=== PATIENT | male | born 1960 | race Caucasian/White ===

== ENCOUNTER 2017-06-29 05:02 | Inpatient (IN) | payer BC, OTHER ==
[2017-06-26 11:26] VITALS: BMI 25.9
[2017-06-29] MEDS ORDERED: MIDAZOLAM HCL 2 MG/2 ML SINGLE DOSE VIAL ONE ×2 (07:35)
[2017-06-29] MEDS ORDERED: DEXAMETHASONE SOD PHOSPHATE/PF 10 MG/ML SDV ONE (07:36)
[2017-06-29] MEDS ORDERED: BUPIVACAINE HCL/PF 0.5% (5MG/ML) 10 ML VIAL ONE ×2 (07:37→07:43)
--- NOTE | 2017-06-29 07:51 | HP ---
History & Physical Update - History History: No Change - Physical Physical: No Change - Assessment Assessment: No Change - Plan Plan: No Change (Initial H&P is complete and in his paper chart. Here today for elective robotic subtotal gastrectomy (egd bx identified adenocarcinoma). No new complaints or medications.)
[2017-06-29] MEDS ORDERED: ceFAZolin SODIUM 1 GM VIAL IVPB ONE (08:45)
[2017-06-29] MEDS ORDERED: INDOCYANINE GREEN 25 MG/10 ML VIAL IVPUSH ONE (12:41)
--- NOTE | 2017-06-29 13:34 | OP ---
Operative Note - Note: Operative Date: 06/29/17 Pre-Operative Diagnosis: Gastric Carcinoma Operation: robotic subtotal gastrectomy Post-Operative Diagnosis: Same as Pre-op Surgeon: Michael Martinez Guide Foreign Tour: Kervin Altamirano Anesthesia: General Specimens Removed: stomach and celiac nodes Estimated Blood Loss (mls): 100 Drains & Tubes with Location: SUE
[2017-06-29] MEDS ORDERED: HYDROmorphone HCL CARPU-JECT 2 MG/1 ML DISP.SYRIN IVPB PRN (13:37)
[2017-06-29] MEDS ORDERED: ACETAMINOPHEN 1000 MG/100 ML VIAL (NON FORMULARY) IVPB ONE ×2 (13:38→14:01)
[2017-06-29] MEDS ORDERED: ONDANSETRON 4 MG/2 ML VIAL IVPUSH PRN (13:41)
[2017-06-29] MEDS ORDERED: oxyCODONE HCL 5 MG TABLET PO PRN (13:41)
[2017-06-29] MEDS ORDERED: LACTATED RINGERS SOLUTION 1,000 ML IV SCH (13:45)
--- NOTE | 2017-06-29 13:48 | SURG ---
Surgery Director Housekeeping Note Director Housekeeping: Kervin Altamirano PA-C Date of Service: 06/29/17 Diagnosis: Gastric carcinoma Procedure: robotic subtotal gastrectomy I was present for the entirety of the operative procedure. For further detail, please refer to operative report. Visit type - Case Type Case Type: Scheduled Admission - New patient This patient is new to me today: Yes Date on this admission: 06/29/17
[2017-06-29] MEDS: LACTATED RINGERS SOLUTION 1,000 ML IV SCH ×2 (15:00→22:02)
[2017-06-29 15:01] LABS: HEMATOCRIT 44.5 % (35.4-49); MCH 30.2 pg (25.7-33.7); MCHC 33.6 g/dl (32.0-35.9); MEAN CELL VOLUME 89.7 fl (80-96); MEAN PLT VOLUME 8.8 fl (7.5-11.1); PLATELET COUNT 242 K/MM3 (134-434); RBC 4.95 M/mm3 (4.00-5.60); WHITE BLOOD COUNT 11.8 K/mm3 (4.0-10.0)
[2017-06-29 15:34] LABS: ANION GAP 6 (8-16); BLOOD UREA NITROGEN 19 mg/dL (7-18); CALCIUM 8.4 mg/dL (8.5-10.1); CHLORIDE 104 mmol/L (98-107); CO2 26 mmol/L (21-32); CREATININE 1.2 mg/dL (0.7-1.3); GLUCOSE,RANDOM 151 mg/dL (74-106); POTASSIUM 4.4 mmol/L (3.5-5.1); SODIUM 136 mmol/L (136-145)
[2017-06-29] MEDS ORDERED: PANTOPRAZOLE SODIUM 40 MG VIAL IVPB ONE (19:45)
[2017-06-29] MEDS: morphine SULFATE 4 MG/ML VIAL IVPUSH PRN ×2 (20:07→23:35)
[2017-06-29] MEDS: CEFAZOLIN 1 GM/D5W 1 GM/50 ML BAG IVPB SCH (20:16)
[2017-06-29] MEDS ORDERED: DEXAMETHASONE SOD PHOSPHATE 10 MG/1 ML VIAL ONE (20:45)
[2017-06-29 21:38] LABS: HEMATOCRIT 40.2 % (35.4-49); HEMOGLOBIN 13.8 GM/dL (11.7-16.9); MCH 30.6 pg (25.7-33.7); MCHC 34.3 g/dl (32.0-35.9); MEAN CELL VOLUME 89.3 fl (80-96); MEAN PLT VOLUME 9.2 fl (7.5-11.1); PLATELET COUNT 249 K/MM3 (134-434); RDW 13.9 % (11.9-15.9); WHITE BLOOD COUNT 9.2 K/mm3 (4.0-10.0)
[2017-06-29] MEDS ORDERED: DEXAMETHASONE SOD PHOSPHATE 10 MG/1 ML VIAL IVPUSH ONE (21:45)
[2017-06-29 22:25] LABS: ALBUMIN 2.9 g/dl (3.4-5.0); ALK PHOS 103 U/L (45-117); ANION GAP 10 (8-16); BILIRUBIN,TOTAL 0.4 mg/dL (0.2-1.0); BLOOD UREA NITROGEN 21 mg/dL (7-18); CALCIUM 7.9 mg/dL (8.5-10.1); CHLORIDE 103 mmol/L (98-107); CO2 24 mmol/L (21-32); GLUCOSE,RANDOM 155 mg/dL (74-106); POTASSIUM 4.5 mmol/L (3.5-5.1); SGOT/AST 52 U/L (15-37); SGPT/ALT 78 U/L (12-78); SODIUM 137 mmol/L (136-145); TOT PROT 6.1 g/dl (6.4-8.2)
[2017-06-29] MEDS: ONDANSETRON 4 MG/2 ML VIAL IVPUSH PRN (22:46)
[2017-06-30] MEDS: CEFAZOLIN 1 GM/D5W 1 GM/50 ML BAG IVPB SCH (01:06)
[2017-06-30] MEDS: morphine SULFATE 4 MG/ML VIAL IVPUSH PRN ×2 (03:09→13:19)
[2017-06-30] MEDS: ONDANSETRON 4 MG/2 ML VIAL IVPUSH PRN (06:02)
[2017-06-30] MEDS: LACTATED RINGERS SOLUTION 1,000 ML IV SCH ×2 (07:00→15:29)
[2017-06-30] MEDS ORDERED: ENOXAPARIN NA (PORCINE) 40 MG/0.4 ML DISP.SYRIN SQ SCH (10:00)
[2017-06-30] MEDS ORDERED: PANTOPRAZOLE SODIUM 40 MG VIAL IVPUSH SCH (10:00)
[2017-06-30 10:30] LABS: ALBUMIN 2.8 g/dl (3.4-5.0); ANION GAP 3 (8-16); BILIRUBIN,TOTAL 0.4 mg/dL (0.2-1.0); BLOOD UREA NITROGEN 31 mg/dL (7-18); CALCIUM 7.8 mg/dL (8.5-10.1); CHLORIDE 104 mmol/L (98-107); CO2 28 mmol/L (21-32); CREATININE 1.1 mg/dL (0.7-1.3); GLUCOSE,RANDOM 163 mg/dL (74-106); POTASSIUM 4.6 mmol/L (3.5-5.1); SGOT/AST 51 U/L (15-37); SGPT/ALT 84 U/L (12-78); SODIUM 135 mmol/L (136-145); TOT PROT 5.7 g/dl (6.4-8.2)
[2017-06-30] MEDS ORDERED: DEXAMETHASONE SOD PHOSPHATE 4 MG/1 ML VIAL IVPUSH ONE (10:30)
[2017-06-30 10:31] LABS: ALK PHOS 89 U/L (45-117)
[2017-06-30 10:33] LABS: HEMATOCRIT 36.7 % (35.4-49); HEMOGLOBIN 12.2 GM/dL (11.7-16.9); MCHC 33.3 g/dl (32.0-35.9); MEAN CELL VOLUME 90.3 fl (80-96); PLATELET COUNT 309 K/MM3 (134-434); RBC 4.06 M/mm3 (4.00-5.60); RDW 14.2 % (11.9-15.9); WHITE BLOOD COUNT 15.7 K/mm3 (4.0-10.0)
--- NOTE | 2017-06-30 13:06 | PN ---
Progress Note, Physician History of Present Illness: s/p subtotal gastrectromy several episodes of hematemesis in small amounts - Current Medication List Current Medications: Active Medications Fentanyl (Sublimaze Injection -) 50 mcg IVPUSH [id number] PRN PRN Reason: PAIN-PACU ORDER X 4 DOSES ONLY Lactated Ringer's (Lactated Ringers Solution) 1,000 mls @ 125 mls/hr IV ASDIR COUNTS INCLUDE 234 BEDS AT THE [facility] Last Admin: 06/30/17 07:00 Dose: 125 mls/hr Morphine Sulfate (Morphine Sulfate) 4 mg IVPUSH Q3H PRN PRN Reason: PAIN LEVEL 7 - 10 Stop: 06/30/17 19:45 Last Admin: 06/30/17 03:09 Dose: 4 mg Oxycodone HCl (Roxicodone -) 5 mg PO Q4H PRN PRN Reason: PAIN LEVEL 1 - 3 Pantoprazole Sodium (Protonix Iv) 40 mg IVPUSH DAILY COUNTS INCLUDE 234 BEDS AT THE [facility] Last Admin: 06/30/17 10:28 Dose: 40 mg - Objective Vital Signs: Vital Signs Temperature 98.9 F 06/30/17 07:34 Pulse Rate 104 H 06/30/17 07:34 Respiratory Rate 20 06/30/17 07:34 Blood Pressure 138/85 06/30/17 07:34 O2 Sat by Pulse Oximetry (%) 98 06/29/17 21:00 Labs: CBC, BMP 06/30/17 09:53 06/30/17 09:53 Problem List - Problems (1) Gastric adenocarcinoma Code(s): C16.9 - MALIGNANT NEOPLASM OF STOMACH, UNSPECIFIED Assessment/Plan NPo serial H/H cxr continue with close observation PPIs
[2017-06-30 17:44] LABS: HEMATOCRIT 32.6 % (35.4-49); MCH 30.2 pg (25.7-33.7); MCHC 33.7 g/dl (32.0-35.9); MEAN CELL VOLUME 89.5 fl (80-96); MEAN PLT VOLUME 8.6 fl (7.5-11.1); PLATELET COUNT 272 K/MM3 (134-434); RBC 3.64 M/mm3 (4.00-5.60); RDW 14.3 % (11.9-15.9)
--- NOTE | 2017-06-30 18:15 | PN ---
Progress Note (short form) - Note Progress Note: feeling better minimal output from NGT mostly clear Exam soft nondistended Hct stable no need for transfusion continue to observe NPO IV fluids serial CBC Problem List - Problems (1) Gastric adenocarcinoma Code(s): C16.9 - MALIGNANT NEOPLASM OF STOMACH, UNSPECIFIED
--- NOTE | 2017-06-30 18:48 | PN ---
Progress Note, Physician History of Present Illness: Underwent laparoscopic partial gastrectomy yesterday without any complications. Denies any abdominal pain. NG tube passed this AM and draining fresh blood. 5PM HB 11Gm, admission HB 15. - Current Medication List Current Medications: Active Medications Fentanyl (Sublimaze Injection -) 50 mcg IVPUSH [id number] PRN PRN Reason: PAIN-PACU ORDER X 4 DOSES ONLY Lactated Ringer's (Lactated Ringers Solution) 1,000 mls @ 125 mls/hr IV ASDIR [facility] Last Admin: 06/30/17 15:29 Dose: Not Given Morphine Sulfate (Morphine Sulfate) 4 mg IVPUSH Q3H PRN PRN Reason: PAIN LEVEL 7 - 10 Stop: 06/30/17 19:45 Last Admin: 06/30/17 13:19 Dose: 4 mg Oxycodone HCl (Roxicodone -) 5 mg PO Q4H PRN PRN Reason: PAIN LEVEL 1 - 3 Pantoprazole Sodium (Protonix Iv) 40 mg IVPUSH DAILY [facility] Last Admin: 06/30/17 10:28 Dose: 40 mg - Objective Vital Signs: Vital Signs Temperature 99.1 F 06/30/17 17:04 Pulse Rate 103 H 06/30/17 17:04 Respiratory Rate 20 06/30/17 17:04 Blood Pressure 152/70 06/30/17 17:04 O2 Sat by Pulse Oximetry (%) 98 06/29/17 21:00 Constitutional: Yes: Well Nourished, No Distress Eyes: Yes: WNL HENT: Yes: WNL Neck: Yes: WNL Cardiovascular: Yes: Regular Rate and Rhythm, S1, S2 Respiratory: Yes: Regular, CTA Bilaterally Gastrointestinal: Yes: Other (surgical wound dressing is clean. Abdomen is not distended, slight tenderness in epigastrium. Peristalsis sluggish) Genitourinary: Yes: WNL Musculoskeletal: Yes: WNL Extremities: Yes: WNL Edema: No Peripheral Pulses WNL: Yes Integumentary: Yes: WNL Wound/Incision: Yes: Clean/Dry Neurological: Yes: Alert, Oriented ...Motor Strength: WNL Psychiatric: Yes: Alert, Oriented Labs: CBC, BMP 06/30/17 17:00 06/30/17 09:53
[2017-06-30] MEDS ORDERED: LACTATED RINGERS SOLUTION 1,000 ML IV SCH ×2 (19:28→23:30)
[2017-06-30] MEDS ORDERED: METOCLOPRAMIDE HCL INJECTION 10 MG/2 ML VIAL IVPB SCH (19:30)
--- NOTE | 2017-06-30 19:35 | CON.GI ---
Consult Consult Specialty:: GI Referred by:: Dr Zhu Reason for Consultation:: Upper GI bleeding - History of Present Illness History of Present Illness: The patieint was s/p partial gastrectomy secondary to adenocarcinoma yesterday. Over night he had several eiposide of hematemesis. Ngt was inserted this morning. His estimated blood loss was 2 units of blood. On review of his vital signs he has resting tachycardia of 103. - Alcohol/Substance Use Hx Alcohol Use: Yes (rarely) - Smoking History Smoking history: Current some day smoker Have you smoked in the past 12 months: Yes Aproximately how many cigarettes per day: 20 Home Medications - Allergies Allergies/Adverse Reactions: Allergies Allergy/AdvReac Type Severity Reaction Status Date / Time No Known Allergies Allergy Verified 06/29/17 06:49 - Home Medications Home Medications: Ambulatory Orders Sulfasalazine [Azulfidine] 500 mg PO DAILY 06/26/17 Physical Exam-GI Vital Signs: Vital Signs Temperature 99.1 F 06/30/17 17:04 Pulse Rate 103 H 06/30/17 17:04 Respiratory Rate 20 06/30/17 17:04 Blood Pressure 152/70 06/30/17 17:04 O2 Sat by Pulse Oximetry (%) 98 06/29/17 21:00 Constitutional: Yes: Well Nourished Eyes: Yes: Conjunctiva Clear HENT: Yes: Normocephalic Neck: Yes: Trachea Midline Cardiovascular: Yes: Regular Rate and Rhythm Respiratory: Yes: CTA Bilaterally ...Palpate: Yes: Soft. No: Firm/Rigid, Guarding, Hepatomegaly, Mass, Pulsatile Mass, Splenomegaly, Tenderness Labs: CBC, BMP 06/30/17 17:00 06/30/17 09:53 Problem List - Problems (1) Upper GI bleeding Assessment/Plan: r/o M-W tear post op bleedingassociated with Tachycardia R> will need 1 unit of PRBC because of acute blood loss and orthostatic changes , FFP 2 units ,h/o lovenox use low Gomco suction IV Reglan and Zofran t Code(s): K92.2 - GASTROINTESTINAL HEMORRHAGE, UNSPECIFIED (2) Leukocytosis Assessment/Plan: post op r/o occult Aspiration R> will cover empirically with Ceftriaxone Code(s): D72.829 - ELEVATED WHITE BLOOD CELL COUNT, UNSPECIFIED
[2017-06-30] MEDS: ONDANSETRON 4 MG/2 ML VIAL IVPB SCH ×2 (19:55→21:59)
[2017-06-30] MEDS ORDERED: CEFTRIAXONE 1,000 MG in DEXTROSE 5%-WATER - 50 ML IVPB ONE (20:15)
[2017-06-30] MEDS: PANTOPRAZOLE SODIUM 40 MG VIAL IVPUSH SCH (21:59)
[2017-06-30] MEDS ORDERED: morphine SULFATE 4 MG/ML VIAL IVPUSH PRN (23:19)
[2017-06-30] MEDS ORDERED: METOPROLOL TARTRATE 5 MG/5 ML VIAL IVPUSH ONE (23:30)
[2017-07-01] MEDS: ONDANSETRON 4 MG/2 ML VIAL IVPB SCH ×6 (02:57→21:33)
[2017-07-01 06:03] LABS: HEMATOCRIT 29.1 % (35.4-49); HEMOGLOBIN 9.9 GM/dL (11.7-16.9); MCH 30.5 pg (25.7-33.7); MEAN CELL VOLUME 89.6 fl (80-96); MEAN PLT VOLUME 8.5 fl (7.5-11.1); PLATELET COUNT 229 K/MM3 (134-434); RBC 3.24 M/mm3 (4.00-5.60); RDW 13.6 % (11.9-15.9); WHITE BLOOD COUNT 11.8 K/mm3 (4.0-10.0)
[2017-07-01] MEDS: METOCLOPRAMIDE HCL INJECTION 10 MG/2 ML VIAL IVPB SCH ×3 (06:49→21:27)
[2017-07-01] MEDS ORDERED: PT OWN MED DRAWER 7, Y5N ONE (09:23)
[2017-07-01] MEDS: PANTOPRAZOLE SODIUM 40 MG VIAL IVPUSH SCH ×2 (10:50→21:27)
--- NOTE | 2017-07-01 10:58 | CONSULT ---
Consult Consult Specialty:: PULMONARY/CCM Referred by:: Dr. Garcia Reason for Consultation:: GI bleed - History of Present Illness Chief Complaint: gastric ca History of Present Illness: 57yo male with recently diagnosed gastric adenocarcinoma who underwent an elective robotic subtotal gastrectomy/celiac node biopsy on 06/29 who started to bleed bright red blood from his NGT yesterday. H/H down to 9.9 this AM from 15 preop. Currently receiving PRBC transfusions. No shortness of breath or chest pain. Mild incisional pain. No lightheadedness or dizziness. - History Source History Provided By: Patient, Medical Record Limitations to Obtaining History: No Limitations - Alcohol/Substance Use Hx Alcohol Use: Yes (rarely) - Smoking History Smoking history: Current some day smoker Have you smoked in the past 12 months: Yes Aproximately how many cigarettes per day: 20 Home Medications - Allergies Allergies/Adverse Reactions: Allergies Allergy/AdvReac Type Severity Reaction Status Date / Time No Known Allergies Allergy Verified 06/29/17 06:49 - Home Medications Home Medications: Ambulatory Orders Sulfasalazine [Azulfidine] 500 mg PO DAILY 06/26/17 Review of Systems - Review of Systems Constitutional: denies: Chills, Fever Eyes: denies: Recent Change in Vision HENT: denies: Nasal Congestion, Throat Pain Neck: denies: Stiffness, Tenderness Cardiovascular: denies: Chest Pain, Edema, Palpitations, Shortness of Breath Respiratory: denies: Cough, Wheezing Gastrointestinal: reports: Abdominal Pain. denies: Nausea, Vomiting Genitourinary: denies: Dysuria, Hematuria Neurological: denies: Dizziness, Headache Physical Exam Vital Signs: Vital Signs Temperature 99.5 F 07/01/17 08:00 Pulse Rate 100 H 07/01/17 08:00 Respiratory Rate 20 07/01/17 08:03 Blood Pressure 135/77 07/01/17 08:00 O2 Sat by Pulse Oximetry (%) 97 07/01/17 08:03 Constitutional: Yes: Calm Eyes: Yes: Conjunctiva Clear, EOM Intact HENT: Yes: Atraumatic, Normocephalic Neck: Yes: Supple, Trachea Midline Cardiovascular: Yes: Regular Rate and Rhythm Respiratory: Yes: Regular, CTA Bilaterally Gastrointestinal: Yes: Normal Bowel Sounds, Soft, Other (dressings clean) Edema: No Neurological: Yes: Alert, Oriented Labs: CBC, BMP 07/01/17 05:30 06/30/17 09:53 Imaging - Results Chest X-ray: Report Reviewed (no infiltrates), Image Reviewed Problem List - Problems (1) Gastric adenocarcinoma Code(s): C16.9 - MALIGNANT NEOPLASM OF STOMACH, UNSPECIFIED (3) Upper GI bleeding Code(s): K92.2 - GASTROINTESTINAL HEMORRHAGE, UNSPECIFIED (4) Acute blood loss anemia Code(s): D62 - ACUTE POSTHEMORRHAGIC ANEMIA Assessment/Plan Gastric Ca s/p robotic subtotal gastrectomy/celiac node sampling Acute blood Loss Anemia - monitor H/H, coags - transfuse as needed - NPO - IVF - protonix - mechanical DVT prophylaxis - ensure large bore peripheral access - continue ICU monitoring Thank you for this consult Salazar Lyons MD
[2017-07-01 15:23] LABS: BASO % 0.1 % (0-2.0); HEMATOCRIT 35.4 % (35.4-49); HEMOGLOBIN 12.1 GM/dL (11.7-16.9); LYMPH % 7.7 % (8-40); MCH 30.5 pg (25.7-33.7); MCHC 34.2 g/dl (32.0-35.9); MEAN PLT VOLUME 8.4 fl (7.5-11.1); MONO % 9.4 % (3.8-10.2); NEUT % 82.8 % (42.8-82.8); PLATELET COUNT 228 K/MM3 (134-434); RBC 3.97 M/mm3 (4.00-5.60); RDW 13.7 % (11.9-15.9); WHITE BLOOD COUNT 11.7 K/mm3 (4.0-10.0)
[2017-07-01 15:30] LABS: INR 1.03 (0.82-1.09); PROTHROMBIN TIME (PATIENT) 11.6 SEC (9.98-11.88)
[2017-07-01 15:33] LABS: ACTIVATED PTT 25.8 SECONDS (26.9-34.4)
--- NOTE | 2017-07-01 20:25 | PN ---
Progress Note, Physician History of Present Illness: s/p D2 robotic subtotal gastrectomy POD2 feeling better transfered over night to ICU over concerns of bleeding most likely secondary to uncontroled BP patient remains hemodynamically stable H/H stable Afebrile Exam soft nontender incisions clean and dry SUE serosanguinous Doing well plan for Upper GI series tomorrow am then to start clear liquid diet Transfer to Med surg floor - Current Medication List Current Medications: Active Medications Ceftriaxone Sodium 1 gm/ (Dextrose) 50 mls @ 100 mls/hr IVPB DAILY [facility] Dextrose/Sodium Chloride (D5-Ns -) 1,000 mls @ 125 mls/hr IV ASDIR [facility] Stop: 07/04/17 03:44 Metoclopramide HCl (Reglan Injection -) 10 mg IVPB TID [facility] Last Admin: 07/01/17 14:57 Dose: 10 mg Morphine Sulfate (Morphine Sulfate) 4 mg IVPUSH Q3H PRN PRN Reason: PAIN LEVEL 6-10 Ondansetron HCl (Zofran Injection) 4 mg IVPB Q4H-IV [facility] Last Admin: 07/01/17 18:37 Dose: Not Given Oxycodone HCl (Roxicodone -) 5 mg PO Q4H PRN PRN Reason: PAIN LEVEL 1 - 3 Pantoprazole Sodium (Protonix Iv) 40 mg IVPUSH BID [facility] Last Admin: 07/01/17 10:50 Dose: 40 mg - Objective Vital Signs: Vital Signs Temperature 98.9 F 07/01/17 14:00 Pulse Rate 107 H 07/01/17 18:00 Respiratory Rate 18 07/01/17 18:00 Blood Pressure 127/77 07/01/17 18:00 O2 Sat by Pulse Oximetry (%) 97 07/01/17 08:03 Labs: CBC, BMP 07/01/17 15:05 06/30/17 09:53 INR, PTT INR 1.03 (0.82-1.09) 07/01/17 15:05 Problem List - Problems (1) Gastric adenocarcinoma Code(s): C16.9 - MALIGNANT NEOPLASM OF STOMACH, UNSPECIFIED
[2017-07-01] MEDS ORDERED: cefTRIAXone SODIUM 1 GM VIAL ONE (20:51)
[2017-07-01] MEDS ORDERED: DEXTROSE 5%-WATER - 50 ML IVPB ONE (20:52)
[2017-07-01] MEDS: CEFTRIAXONE 1 GM in DEXTROSE 5%-WATER - 50 ML IVPB SCH (21:26)
[2017-07-01] MEDS: DEXTROSE 5%-NORMAL SALINE 1,000 ML IV SCH (21:36)
[2017-07-02] MEDS: ONDANSETRON 4 MG/2 ML VIAL IVPB SCH ×4 (02:00→14:12)
[2017-07-02 05:59] LABS: BASO % 0.1 % (0-2.0); EOS % 0.1 % (0-4.5); HEMATOCRIT 31.1 % (35.4-49); HEMOGLOBIN 10.9 GM/dL (11.7-16.9); LYMPH % 11.3 % (8-40); MCH 31.1 pg (25.7-33.7); MCHC 34.9 g/dl (32.0-35.9); MEAN CELL VOLUME 89.2 fl (80-96); MEAN PLT VOLUME 8.8 fl (7.5-11.1); MONO % 11.3 % (3.8-10.2); NEUT % 77.2 % (42.8-82.8); PLATELET COUNT 217 K/MM3 (134-434); RBC 3.49 M/mm3 (4.00-5.60); RDW 13.9 % (11.9-15.9)
[2017-07-02 06:18] LABS: INR 1.16 (0.82-1.09); PROTHROMBIN TIME (PATIENT) 13.1 SEC (9.98-11.88)
[2017-07-02 06:19] LABS: ACTIVATED PTT 26.2 SECONDS (26.9-34.4)
[2017-07-02] MEDS: METOCLOPRAMIDE HCL INJECTION 10 MG/2 ML VIAL IVPB SCH ×2 (06:27→13:10)
[2017-07-02 07:26] LABS: ALBUMIN 2.6 g/dl (3.4-5.0); ANION GAP 5 (8-16); BLOOD UREA NITROGEN 27 mg/dL (7-18); CALCIUM 7.8 mg/dL (8.5-10.1); CHLORIDE 106 mmol/L (98-107); CO2 28 mmol/L (21-32); CREATININE 0.8 mg/dL (0.7-1.3); GLUCOSE,RANDOM 111 mg/dL (74-106); MAGNESIUM 2.1 mg/dL (1.8-2.4); PHOSPHOROUS 2.6 mg/dL (2.5-4.9); SGOT/AST 22 U/L (15-37); SGPT/ALT 52 U/L (12-78); SODIUM 139 mmol/L (136-145)
[2017-07-02 07:28] LABS: ALK PHOS 72 U/L (45-117); BILIRUBIN,TOTAL 0.4 mg/dL (0.2-1.0); TOT PROT 5.4 g/dl (6.4-8.2)
[2017-07-02] MEDS: DEXTROSE 5%-NORMAL SALINE 1,000 ML IV SCH (08:30)
--- NOTE | 2017-07-02 08:57 | PN ---
Progress Note, Physician Chief Complaint: s/p robot assisted partial gastrectomy post op day one History of Present Illness: under general anesthesia with bilateral TAP block for post op pain control - Current Medication List Current Medications: Active Medications Ceftriaxone Sodium 1 gm/ (Dextrose) 50 mls @ 100 mls/hr IVPB DAILY [facility] Last Admin: 07/01/17 21:26 Dose: 100 mls/hr Dextrose/Sodium Chloride (D5-Ns -) 1,000 mls @ 125 mls/hr IV ASDIR [facility] Stop: 07/04/17 03:44 Last Admin: 07/01/17 21:36 Dose: 125 mls/hr Metoclopramide HCl (Reglan Injection -) 10 mg IVPB TID [facility] Last Admin: 07/02/17 06:27 Dose: 10 mg Morphine Sulfate (Morphine Sulfate) 4 mg IVPUSH Q3H PRN PRN Reason: PAIN LEVEL 6-10 Ondansetron HCl (Zofran Injection) 4 mg IVPB Q4H-IV [facility] Last Admin: 07/02/17 06:27 Dose: 4 mg Oxycodone HCl (Roxicodone -) 5 mg PO Q4H PRN PRN Reason: PAIN LEVEL 1 - 3 Pantoprazole Sodium (Protonix Iv) 40 mg IVPUSH BID [facility] Last Admin: 07/01/17 21:27 Dose: 40 mg - Objective Vital Signs: Vital Signs Temperature 99.6 F 07/02/17 08:00 Pulse Rate 92 H 07/02/17 08:00 Respiratory Rate 18 07/02/17 08:00 Blood Pressure 112/71 07/02/17 08:00 O2 Sat by Pulse Oximetry (%) 98 07/01/17 20:23 Constitutional: Yes: Well Nourished Cardiovascular: Yes: WNL Respiratory: Yes: WNL Gastrointestinal: Yes: Other (nasogastric tube in place, nausea prior to placement) Labs: CBC, BMP 07/02/17 05:30 07/02/17 05:30 INR, PTT INR 1.16 (0.82-1.09) H 07/02/17 05:30 Assessment/Plan post op day one, patient is doing well, pain controlled, no adverse effect of anesthetic, nausea likely related to ileus, relieved by NGT. no further intervention necessary by the dept of anesthesia.
[2017-07-02] MEDS ORDERED: cefTRIAXone SODIUM 1 GM VIAL ONE (09:44)
[2017-07-02] MEDS ORDERED: DEXTROSE 5%-WATER - 50 ML IVPB ONE (09:46)
[2017-07-02] MEDS: PANTOPRAZOLE SODIUM 40 MG VIAL IVPUSH SCH ×2 (09:47→23:09)
[2017-07-02] MEDS: CEFTRIAXONE 1 GM in DEXTROSE 5%-WATER - 50 ML IVPB SCH (09:47)
--- NOTE | 2017-07-02 13:10 | PN ---
Teaching Attending Note Name of Resident: Aniyah Osborne ATTENDING PHYSICIAN STATEMENT I saw and evaluated the patient. I reviewed the resident's note and discussed the case with the resident. I agree with the resident's findings and plan as documented. SUBJECTIVE: Patient seen and examined in the ICU. Awake and alert. Abdominal pain is better today. No CP or SOB. For imaging studies. Intake & Output 06/29/17 06/30/17 07/01/17 07/02/17 23:59 23:59 23:59 23:59 Intake Total 4125 1480 1090 1350 Output Total 1750 2365 2130 700 Balance 2375 885 -1040 650 Last Vital Signs Temp Pulse Resp BP Pulse Ox 98.4 F 90 18 130/73 98 07/02/17 10:00 07/02/17 10:00 07/02/17 10:00 07/02/17 12:00 07/02/17 09:00 Active Medications Ceftriaxone Sodium 1 gm/ (Dextrose) 50 mls @ 100 mls/hr IVPB DAILY [facility] Last Admin: 07/02/17 09:47 Dose: 100 mls/hr Dextrose/Sodium Chloride (D5-Ns -) 1,000 mls @ 125 mls/hr IV ASDIR [facility] Stop: 07/04/17 03:44 Last Admin: 07/02/17 08:30 Dose: 125 mls/hr Metoclopramide HCl (Reglan Injection -) 10 mg IVPB TID [facility] Last Admin: 07/02/17 13:10 Dose: 10 mg Morphine Sulfate (Morphine Sulfate) 4 mg IVPUSH Q3H PRN PRN Reason: PAIN LEVEL 6-10 Ondansetron HCl (Zofran Injection) 4 mg IVPB Q4H-IV [facility] Last Admin: 07/02/17 09:47 Dose: 4 mg Oxycodone HCl (Roxicodone -) 5 mg PO Q4H PRN PRN Reason: PAIN LEVEL 1 - 3 Pantoprazole Sodium (Protonix Iv) 40 mg IVPUSH BID [facility] Last Admin: 07/02/17 09:47 Dose: 40 mg Constitutional: Yes: NAD Eyes: Yes: Conjunctiva Clear, EOM Intact HENT: Yes: Atraumatic, Normocephalic Neck: Yes: Supple, Trachea Midline Cardiovascular: Yes: Regular Rate and Rhythm Respiratory: Yes: Regular, CTA Bilaterally Gastrointestinal: Yes: (+) BS, Soft, mild appropriate tenderness Edema: No Neurological: Yes: Alert, Oriented Labs: Laboratory Results - last 24 hr 07/01/17 07/01/17 07/02/17 15:05 15:05 05:30 WBC 11.7 H 9.0 RBC 3.97 L D 3.49 L Hgb 12.1 D 10.9 L Hct 35.4 D 31.1 L MCV 89.0 89.2 MCH 30.5 31.1 MCHC 34.2 34.9 RDW 13.7 13.9 Plt Count 228 217 MPV 8.4 8.8 Neutrophils % 82.8 D 77.2 Lymphocytes % 7.7 L D 11.3 D Monocytes % 9.4 11.3 H Eosinophils % 0.0 D 0.1 D Basophils % 0.1 0.1 PT with INR 11.60 INR 1.03 PTT (Actin FS) 25.8 L Sodium Potassium Chloride Carbon Dioxide Anion Gap BUN Creatinine Creat Clearance w eGFR Random Glucose Calcium Phosphorus Magnesium Total Bilirubin AST ALT Alkaline Phosphatase Total Protein Albumin 07/02/17 07/02/17 05:30 05:30 WBC RBC Hgb Hct MCV MCH MCHC RDW Plt Count MPV Neutrophils % Lymphocytes % Monocytes % Eosinophils % Basophils % PT with INR 13.10 H INR 1.16 H PTT (Actin FS) 26.2 L Sodium 139 Potassium 4.0 Chloride 106 Carbon Dioxide 28 Anion Gap 5 L BUN 27 H Creatinine 0.8 D Creat Clearance w eGFR > 60 Random Glucose 111 H D Calcium 7.8 L Phosphorus 2.6 Magnesium 2.1 Total Bilirubin 0.4 AST 22 D ALT 52 D Alkaline Phosphatase 72 Total Protein 5.4 L Albumin 2.6 L Problem List - Problems (1) Gastric adenocarcinoma Code(s): C16.9 - MALIGNANT NEOPLASM OF STOMACH, UNSPECIFIED (3) Upper GI bleeding Code(s): K92.2 - GASTROINTESTINAL HEMORRHAGE, UNSPECIFIED (4) Acute blood loss anemia Code(s): D62 - ACUTE POSTHEMORRHAGIC ANEMIA Assessment/Plan Gastric Ca s/p robotic subtotal gastrectomy/celiac node sampling Acute blood Loss Anemia - For imaging studies - monitor H/H - Normal transfusion as needed - PO when cleared by surgery - PPI - DVT prophylaxis Dr Darling Critical care time spent in reviewing chart, evaluating patient and formulating plan - 36 minutes.
[2017-07-02] MEDS ORDERED: DEXTROSE 5%-NORMAL SALINE 1,000 ML IV SCH ×2 (15:21→20:01)
[2017-07-02] MEDS ORDERED: morphine SULFATE 4 MG/ML VIAL IVPUSH PRN (15:21)
[2017-07-02] MEDS ORDERED: ONDANSETRON 4 MG/2 ML VIAL IVPUSH PRN (18:00)
--- NOTE | 2017-07-02 20:06 | PN ---
Progress Note, Physician History of Present Illness: s/p robotic subtotal gastrectomy D2 lymphadenectomy POD#3 tolerating clears - Current Medication List Current Medications: Active Medications Bacitracin/Polymyxin B Sulfate (Polysporin Ointment -) 1 applic TP DAILY [facility] Ceftriaxone Sodium 1 gm/ (Dextrose) 50 mls @ 100 mls/hr IVPB DAILY [facility] Dextrose/Sodium Chloride (D5-Ns -) 1,000 mls @ 50 mls/hr IV ASDIR [facility] Metoclopramide HCl (Reglan Injection -) 10 mg IVPUSH TID [facility] Morphine Sulfate (Morphine Sulfate) 4 mg IVPUSH Q3H PRN PRN Reason: PAIN LEVEL 6-10 Ondansetron HCl (Zofran Injection) 4 mg IVPUSH Q4H PRN PRN Reason: NAUSEA AND/OR VOMITING Pantoprazole Sodium (Protonix Iv) 40 mg IVPUSH BID [facility] - Objective Vital Signs: Vital Signs Temperature 99.5 F 07/02/17 17:02 Pulse Rate 88 07/02/17 17:02 Respiratory Rate 18 07/02/17 18:00 Blood Pressure 131/74 07/02/17 17:02 O2 Sat by Pulse Oximetry (%) 98 07/02/17 18:00 Labs: CBC, BMP 07/02/17 05:30 07/02/17 05:30 INR, PTT INR 1.16 (0.82-1.09) H 07/02/17 05:30 Problem List - Problems (1) Gastric adenocarcinoma Code(s): C16.9 - MALIGNANT NEOPLASM OF STOMACH, UNSPECIFIED Assessment/Plan doing well H/H stable wbc normal Upper GI series shows wellapearing anastomosis no leak OOB DC planning
--- NOTE | 2017-07-02 21:57 | PN ---
Physical Exam: SUBJECTIVE: Patient seen and examined in the ICU. AAOx3. Pt reports some soreness to abdomen, pain is controlled. Pt denies chest pain, sob, fever, chills. Pt reports flatus this morning. OBJECTIVE: Vital Signs Period Temp Pulse Resp BP Sys/Jimenez Pulse Ox Last 24 Hr 98.4 F-99.6 F 87-97 16-20 108-131/71-93 98-98 GENERAL: The patient is awake, alert, and fully oriented, in no acute distress. LUNGS: Breath sounds equal, clear to auscultation bilaterally, no wheezes, no crackles, no accessory muscle use. HEART: Regular rate and rhythm, S1, S2 without murmur, rub or gallop. ABDOMEN: Soft, mild tenderness, nondistended, normoactive bowel sounds, no guarding. EXTREMITIES: Warm, well-perfused, no edema. PSYCH: Normal mood, normal affect. SKIN: Warm, dry, normal turgor, no rashes or lesions noted Laboratory Results - last 24 hr 07/02/17 07/02/17 07/02/17 05:30 05:30 05:30 WBC 9.0 RBC 3.49 L Hgb 10.9 L Hct 31.1 L MCV 89.2 MCH 31.1 MCHC 34.9 RDW 13.9 Plt Count 217 MPV 8.8 Neutrophils % 77.2 Lymphocytes % 11.3 D Monocytes % 11.3 H Eosinophils % 0.1 D Basophils % 0.1 PT with INR 13.10 H INR 1.16 H PTT (Actin FS) 26.2 L Sodium 139 Potassium 4.0 Chloride 106 Carbon Dioxide 28 Anion Gap 5 L BUN 27 H Creatinine 0.8 D Creat Clearance w eGFR > 60 Random Glucose 111 H D Calcium 7.8 L Phosphorus 2.6 Magnesium 2.1 Total Bilirubin 0.4 AST 22 D ALT 52 D Alkaline Phosphatase 72 Total Protein 5.4 L Albumin 2.6 L Active Medications Generic Name Dose Route Start Last Admin Trade Name Freq PRN Reason Stop Dose Admin Bacitracin/Polymyxin B Sulfate 1 applic 07/02/17 20:15 Polysporin Ointment - TP DAILY [facility] Ceftriaxone Sodium 1 gm/ 50 mls @ 100 mls/hr 07/03/17 10:00 Dextrose IVPB DAILY [facility] Dextrose/Sodium Chloride 1,000 mls @ 50 mls/hr 07/02/17 20:01 D5-Ns - IV ASDIR [facility] Metoclopramide HCl 10 mg 07/02/17 22:00 Reglan Injection - IVPUSH TID [facility] Morphine Sulfate 4 mg 07/02/17 15:21 Morphine Sulfate IVPUSH Q3H PRN PAIN LEVEL 6-10 Ondansetron HCl 4 mg 07/02/17 18:00 Zofran Injection IVPUSH Q4H PRN NAUSEA AND/OR VOMITING Pantoprazole Sodium 40 mg 07/02/17 22:00 Protonix Iv IVPUSH BID [facility] ASSESSMENT/PLAN: 57M with PMH of recently diagnosed gastric adenoCa, presents s/p subtotal gastrectomy. # gastric cancer - s/p robotic subtotal gastrectomy/celiac node sampling by Dr. Sr on 06/29/17 - POD #3 - IV Ceftriaxone for post-op antibiotic - continue Reglan to assist motility - pain control with Morphine prn - Zofran prn for nausea - incentive spirometry # acute blood loss anemia - monitor for overt s/s of bleeding - monitor CBC - transfuse as needed # FEN - Fluids: D5-NS @ 50 ml/hr - Electrolytes: wnl, continue to monitor - Nutrition: clear liquids # Prophylaxis - DVT ppx with tova SCDs - GI ppx with Protonix - deconditioning ppx with PT # dispo - pt stable for transfer to Med-Surg floors Visit type - Emergency Visit Emergency Visit: Yes ED Registration Date: 06/29/17 Care time: The patient presented to the Emergency Department on the above date and was hospitalized for further evaluation of their emergent condition. - New Patient This patient is new to me today: Yes Date on this admission: 07/02/17 - Critical Care Critical Care patient: Yes Total Critical Care Time (in minutes): 40 Critical Care Statement: The care of this patient involved high complexity decision making to prevent further life threatening deterioration of the patient 's condition and/or to evaluate & treat vital organ system(s) failure or risk of failure.
[2017-07-02] MEDS: METOCLOPRAMIDE HCL INJECTION 10 MG/2 ML VIAL IVPUSH SCH (23:09)
[2017-07-02] MEDS: BACITRACIN/POLYMYXIN B SULFATE 15 GM TUBE TP SCH (23:09)
[2017-07-03] MEDS: METOCLOPRAMIDE HCL INJECTION 10 MG/2 ML VIAL IVPUSH SCH ×2 (06:38→14:13)
[2017-07-03 08:12] LABS: HEMATOCRIT 36.9 % (35.4-49); HEMOGLOBIN 12.4 GM/dL (11.7-16.9); MCH 30.2 pg (25.7-33.7); MCHC 33.5 g/dl (32.0-35.9); MEAN CELL VOLUME 90.1 fl (80-96); MEAN PLT VOLUME 8.9 fl (7.5-11.1); PLATELET COUNT 279 K/MM3 (134-434); RDW 13.7 % (11.9-15.9)
[2017-07-03 08:28] LABS: CHLORIDE 103 mmol/L (98-107); POTASSIUM 3.9 mmol/L (3.5-5.1); SODIUM 137 mmol/L (136-145)
[2017-07-03 08:42] LABS: ANION GAP 6 (8-16); BLOOD UREA NITROGEN 20 mg/dL (7-18); CALCIUM 8.1 mg/dL (8.5-10.1); CO2 28 mmol/L (21-32); CREATININE 0.9 mg/dL (0.7-1.3); GLUCOSE,RANDOM 92 mg/dL (74-106); MAGNESIUM 1.9 mg/dL (1.8-2.4); PHOSPHOROUS 2.9 mg/dL (2.5-4.9)
--- NOTE | 2017-07-03 08:53 | PN ---
GI Progress Note Subjective: patient was seen at 7 pm last night , no active bleeding, tolerated clear liquids, NGT was discontinued - Objective Vital Signs: Vital Signs Temperature 98.8 F 07/03/17 06:42 Pulse Rate 89 07/03/17 06:42 Respiratory Rate 20 07/03/17 06:42 Blood Pressure 113/76 07/03/17 06:42 O2 Sat by Pulse Oximetry (%) 93 L 07/02/17 21:00 Constitutional: Well Nourished Eyes: Yes: Conjunctiva Clear HENT: Yes: Atraumatic Neck: Yes: Supple Cardiovascular: Yes: Regular Rate and Rhythm Respiratory: Yes: CTA Bilaterally ...Palpate: Yes: Soft. No: Firm/Rigid, Guarding, Hepatomegaly, Mass, Pulsatile Mass, Splenomegaly, Tenderness Labs: CBC, BMP 07/03/17 06:00 07/03/17 06:00 INR, PTT INR 1.16 (0.82-1.09) H 07/02/17 05:30 Problem List - Problems (1) Upper GI bleeding Assessment/Plan: --resolved R> advance diet as per surgery soft food preferable Code(s): K92.2 - GASTROINTESTINAL HEMORRHAGE, UNSPECIFIED (2) Leukocytosis Assessment/Plan: resolved R> may d/c ceftriaxone in am Code(s): D72.829 - ELEVATED WHITE BLOOD CELL COUNT, UNSPECIFIED
[2017-07-03] MEDS ORDERED: DEXTROSE 5%-WATER - 50 ML IVPB ONE (09:43)
[2017-07-03] MEDS ORDERED: cefTRIAXone SODIUM 1 GM VIAL ONE (09:43)
[2017-07-03] MEDS: PANTOPRAZOLE SODIUM 40 MG VIAL IVPUSH SCH (09:44)
[2017-07-03] MEDS: BACITRACIN/POLYMYXIN B SULFATE 15 GM TUBE TP SCH (09:45)
[2017-07-03] MEDS ORDERED: CEFTRIAXONE 1 GM in DEXTROSE 5%-WATER - 50 ML IVPB SCH (10:00)
--- NOTE | 2017-07-03 13:47 | DS ---
Physical Exam: SUBJECTIVE: Patient seen and examined. Doing well. Resting comfortably. Tolerating soft diet. Voiding/stooling. Ambulating unassisted. Denies n/v/f/c, CP or SOB. OBJECTIVE: Vital Signs Temperature 98.4 F 07/03/17 10:00 Pulse Rate 90 07/03/17 10:00 Respiratory Rate 16 07/03/17 10:00 Blood Pressure 119/66 07/03/17 10:00 O2 Sat by Pulse Oximetry (%) 93 L 07/03/17 09:00 PHYSICAL EXAM GENERAL: Awake, alert, and fully oriented, in no nad HEAD: nc. at. NECK: Trachea midline, full range of motion, supple. LUNGS: cta bilat HEART: rrr. ABD: All surgical ports c/d/i. No hematoma. NT. ND. Normoactive bowel sounds. EXTREMITIES: 2+ pulses, warm, well-perfused, no edema. NEUROLOGICAL: Cranial nerves II through XII grossly intact. Normal speech, gait not observed. PSYCH: Normal mood, normal affect. SKIN: Warm, dry, normal turgor, no rashes or lesions noted. LABS CBC,CMP WBC 10.0 K/mm3 (4.0-10.0) 07/03/17 06:00 RBC 4.10 M/mm3 (4.00-5.60) 07/03/17 06:00 Hgb 12.4 GM/dL (11.7-16.9) D 07/03/17 06:00 Hct 36.9 % (35.4-49) D 07/03/17 06:00 MCV 90.1 fl (80-96) 07/03/17 06:00 MCH 30.2 pg (25.7-33.7) 07/03/17 06:00 MCHC 33.5 g/dl (32.0-35.9) 07/03/17 06:00 RDW 13.7 % (11.9-15.9) 07/03/17 06:00 Plt Count 279 K/MM3 (134-434) D 07/03/17 06:00 MPV 8.9 fl (7.5-11.1) 07/03/17 06:00 Neutrophils % 77.2 % (42.8-82.8) 07/02/17 05:30 Lymphocytes % 11.3 % (8-40) D 07/02/17 05:30 Monocytes % 11.3 % (3.8-10.2) H 07/02/17 05:30 Eosinophils % 0.1 % (0-4.5) D 07/02/17 05:30 Basophils % 0.1 % (0-2.0) 07/02/17 05:30 Sodium 137 mmol/L (136-145) 07/03/17 06:00 Potassium 3.9 mmol/L (3.5-5.1) 07/03/17 06:00 Chloride 103 mmol/L (98-107) 07/03/17 06:00 Carbon Dioxide 28 mmol/L (21-32) 07/03/17 06:00 Anion Gap 6 (8-16) L 07/03/17 06:00 BUN 20 mg/dL (7-18) H D 07/03/17 06:00 Creatinine 0.9 mg/dL (0.7-1.3) 07/03/17 06:00 Creat Clearance w eGFR > 60 (>60) 07/02/17 05:30 Random Glucose 92 mg/dL (74-106) 07/03/17 06:00 Calcium 8.1 mg/dL (8.5-10.1) L 07/03/17 06:00 Phosphorus 2.9 mg/dL (2.5-4.9) 07/03/17 06:00 Magnesium 1.9 mg/dL (1.8-2.4) 07/03/17 06:00 Total Bilirubin 0.4 mg/dL (0.2-1.0) 07/02/17 05:30 AST 22 U/L (15-37) D 07/02/17 05:30 ALT 52 U/L (12-78) D 07/02/17 05:30 Alkaline Phosphatase 72 U/L (45-117) 07/02/17 05:30 Total Protein 5.4 g/dl (6.4-8.2) L 07/02/17 05:30 Albumin 2.6 g/dl (3.4-5.0) L 07/02/17 05:30 HOSPITAL COURSE: Date of Admission:06/29/17 Date of Discharge: 07/03/17 The patient was admitted to the Med-Surg Unit s/p robotic subtotal gastrectomy ( due to adenocarcinoma). The day of surgery, pain managed well via narcotic and non-narcotic (oral and IV approach). Had some hemetemsis POD #1. Transferred to ICU for closer Observation. GI/Dr. Henry consulted and followed. UGI POD #2 which showed an intact anastamosis, no leak/extravasation. Started on a bariatric stage 1 diet and advanced as tolerated. Pat-operative IV ABX were administered. DVT prophylaxis was achieved with SCDs and early ambulation. The patient ambulated with Physical Therapy and no services were recommended upon discharge. The discharge instructions and an oral pain management plan were reviewed with the patient. All questions answered. Above plan discussed with Dr. Martinez and agreed. Minutes to complete discharge: 20 Visit type - Case Type Case Type: Scheduled Admission
[2017-07-03 15:01] VITALS: BP 125/72; PULSE 107; TEMP 98.2
--- NOTE | 2017-07-04 16:03 | PATH ---
Surgical Pathology Report Patient Name: STEVO DUNNE Med. Rec. #: [id number] /Age/Gender: 1960 (Age: 57) / M Account: [id number] Location: [facility] MED/SURG Taken: 06/29/2017 Received: 06/29/2017 Reported: 07/04/2017 Physicians: Michael Martinez M.D. Yazan Henry M.D. Johnny Watson M.D. Specimen(s) Received A: LEFT GASTRIC CELIAC TRUNK COMMON HEPATIC LYMPH NODE B: GREATER CURVATURE STOMACH Clinical History Neoplasm of stomach Final Diagnosis A. LYMPH NODES, LEFT GASTRIC CELIAC TRUNK COMMON HEPATIC, DISSECTION: METASTATIC CARCINOMA PRESENT IN 3 OF 3 LYMPH NODES. B. 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 CARCINOMA MEASURES 0.3 CM IN GREATEST DIMENSION MEASURED ON THE SLIDE. REMAINING GASTRIC MUCOSA SHOWS CHRONIC GASTRITIS WITH INTESTINAL METAPLASIA. CARCINOMA IS 1.9 CM FROM THE DISTAL MARGIN OF EXCISION. NO LYMPH-VASCULAR INVASION OR PERINEURAL INVASION IDENTIFIED. METASTATIC CARCINOMA IS PRESENT IN 5 OF 10 LYMPH NODES (5/10). Comment: Also see prior biopsy [id number]. Comments Surgical Pathology Cancer Case Summary STOMACH: Procedure _X__ Partial gastrectomy, distal Tumor Site _X__ Antrum Tumor Size Greatest dimension (centimeters): 0.3 cm Histologic Type _X__ Adenocarcinoma Katarina classification of adenocarcinoma: _X__ Diffuse type (includes signet-ring carcinoma, classified as >50% signet-ring cells) Alternative optional classification (based on WHO classification): _X__ Poorly cohesive carcinoma (including signet-ring cell carcinoma and other variants) Histologic Grade _X__ G3: Poorly differentiated, undifferentiated Tumor Extension _X__ Tumor invades the lamina propria Margins _X__ All margins are uninvolved by invasive carcinoma and dysplasia Margins examined: PROXIMAL AND DISTAL Distance of invasive carcinoma from closest margin (millimeters or centimeters): 1.9 cm Specify closest margin: PROXIMAL For gastrectomy specimens only Proximal Margin _X__ Uninvolved by invasive carcinoma _X__ Uninvolved by dysplasia Distal MarginCannot be assesse Involved by invasive carcinoma _X__ Uninvolved by invasive carcinoma _X__ Uninvolved by dysplasia Omental (Radial) Margins _X__ Uninvolved by invasive carcinoma Treatment Effect _X__ No known presurgical therapy Lymphovascular Invasion _X__ Not identified Perineural Invasion _X__ Not identified Regional Lymph Nodes Number of Lymph Nodes Involved: 8 Number of Lymph Nodes Examined: 13 Pathologic Stage Classification (pTNM, AJCC 8th Edition) Primary Tumor (pT) _X__ pT1a: Tumor invades the lamina propria or muscularis mucosae Regional Lymph Nodes (pN) _X__ pN3a: Metastasis in seven to 15 regional lymph nodes Electronically Signed Salazar Lennon M.D. Gross Description A. Received in formalin labeled "left gastric celiac trunk common hepatic lymph node," is a 4.5 x 3.3 x 1.5 cm aggregate of yellow, lobulated adipose tissue. Sectioning reveals 3 abreu brown lymph nodes ranging from 0.9-1.5 cm in greatest dimension. The lymph nodes are entirely submitted in 3 cassettes (one bisected lymph node each). B. Received in formalin labeled "stomach," is a 26.5 x 3.5 x 3.2 cm portion of previously opened stomach with abundant attached fat. The serosa is abreu-lagos with focal bulging. There is a staple line at the distal aspect of the specimen as well as an additional smaller staple line at the proximal aspect of the specimen. The previously opened area of mucosa displays a 3.5 x 2.1 cm sessile mass at 1.4 cm from the proximal staple line. The mass appears to invade through the muscularis and to the serosa. No definite invasion into the fat is identified. The remaining mucosa is abreu with normal folds. Sectioning of the attached fat reveals multiple possible lymph nodes. Silver Miner sections are submitted in 16 cassettes as follows: 1-shave of proximal staple line; 2-3-tumor with proximal mucosa; 6-4-rgylvymkmh tumor; 8-uninvolved distal mucosa; 8-87-yhfwpijd whole possible lymph nodes; 11-16-one whole possible bisected lymph node each. 07/02/201707/02/2017
--- NOTE | 2017-07-16 08:36 | OP ---
DATE OF OPERATION: 06/29/2017 PREOPERATIVE DIAGNOSIS: Gastric cancer. POSTOPERATIVE DIAGNOSIS: Gastric cancer. PROCEDURE: Subtotal gastrectomy with D2 lymph node dissection and robotic assistance. SURGEON: Michael Martinez MD SURVEY RODMAN: MELISA Arndt SPECIMENS: Stomach and lymph nodes COMPLICATIONS: None. BLEEDING: Minimal. The patient tolerated the procedure well. This is a 57-year-old male who presented for endoscopic evaluation by Dr. Henry for epigastric pain. A few antral ulcers were noted on endoscopy and biopsies revealed evidence of adenocarcinoma. For this reason, the patient was submitted for workup with CT scans of the chest and abdomen, which were negative and he was then referred for surgical evaluation. In the operating room, he was placed in the supine position. An extensive discussion with patient obviously took place prior to this. Informed consent was obtained. He received IV antibiotics and administration of general anesthesia without complications. After a standard timeout, the operation was begun with insufflation with a Veress needle to a pressure of 15 mmHg. Next, a total of 4 robotic ports and 2 laparoscopic ports were introduced, all in a transverse line at the level of the umbilicus. A liver retractor was used to expose the GE junction. The stomach was mobilized along the Greater curvature. near the transverse colon to include most of the omentum. Dissection was done using robotic assistance and continued initially in a proximal direction towards the angle of His until the beginning of the gastroepiploic vessels. At this point, the short gastrics were protected. The dissection was taken distally towards the duodenum, and the stomach was mobilized off the pancreas. The gastroepiploic artery was divided between clips. The duodenum was mobilized both superiorly and inferiorly and divided with Endo YUDY stapler blue cartridge. The stomach was then reflected by dividing the gastrohepatic ligament with a vessel sealer. Next, attention was directed to lymph node dissection. Starting at the proximal common bile duct, the lymph node packet was then dissected with the use of a hook dissector and carefully mobilized, skeletonizing the common hepatic and proper hepatic arteries. The dissection was carried all the way to the celiac trunk. The lymph nodes were also dissected off the initial proximal part of the splenic artery and then taken up towards the left gastric artery and this left gastric artery was followed superiorly to the edge of the lesser curvature of the stomach. The dissection was carried proximally towards the hiatus. All the lymph node packet near the hiatus and just inferior and posterior to the caudate lobe were also dissected and skeletonized, and the specimen was sent to Pathology separately. In addition to this, the dissection was carried towards Distal LG artery_. At this point, the stomach was divided just proximal to the entry of the left gastric to the gastric wall on the lesser curvature, approximately 3 cm distal from the GE junction. The stomach was divided here with an Endo YUDY stapler and then the dissection was carried towards the left katy of the diaphragm. A bougie was positioned to create a small gastric pouch. The stomach was divided at the level of the left katy of the diaphragm. At this point, the short gastric vessels were divided with the use of the vessel sealer in order to complete the resection. The small bowel was measured approximately 50 cm from the ligament of Treitz, and this was brought up to the GE junction where a mche-vk-qvmc anastomosis was done using an Endo YUDY stapler purple reload to create the gastrojejunal anastomosis with the stapler and then the common enterotomy was closed in 2 layers using 1 layer of 2 -0 PDS and 1 layer of 3-0 silk. Once complete, then the bougie was removed. The small bowel was measured approximately another 75 cm distal from this point, and this was brought up to the bilio-pancreatic limb , and a hkok-mj-grho anastomosis was performed with the Endo YUDY stapler, and common channel enterotomy closed with the Endo YUDY stapler as well. The bridge of small bowel between the 2 anastomoses was then divided with an Endo YUDY white cartridge in order to create a Foreign-en-Y configuration. The mesenteric defects were closed using 2-0 Ethibond suture in a running fashion and then a Alan-Arita drain was placed. Final check for hemostasis was performed, and liver retractor was removed. The robot was undocked and the specimen was brought out through the umbilical port in an Endo Catch bag. The fascia was closed with 0 Vicryl suture at the umbilical port. The skin was closed with 4-0 Monocryl. Dermabond was applied. The patient was returned to the recovery room awake and alert, in stable condition. He tolerated the procedure well. Sha [id number] MTDD
== END 2017-07-03 18:11 | disposition home or self-care (01) | DRG 375 ==
LOC: JSAMEDAYSX 05:02 → EDSTATUS 08:00 → J8W 16:52 → JICU 06-30 20:51 → J8W 07-02 15:04
PROVIDERS: ADMIT Surgery; ATTEND Surgery
PROC: 07D Lymphatic and Hemic Systems, Extraction (ICD-10-PCS; 2017-06-29)
PROC: 8E0W8CZ Robotic Assisted Procedure of Trunk Region, Via Natural or Artificial Opening Endoscopic (ICD-10-PCS; 2017-06-29)
PROC: 0DB64ZZ Excision of Stomach, Percutaneous Endoscopic Approach (ICD-10-PCS; principal; 2017-06-29 08:00)
PROC: 30233K1 Transfusion of Nonautologous Frozen Plasma into Peripheral Vein, Percutaneous Approach (ICD-10-PCS; 2017-06-30)
PROC: 30233N1 Transfusion of Nonautologous Red Blood Cells into Peripheral Vein, Percutaneous Approach (ICD-10-PCS; 2017-06-30)
DX: C16.9 Malignant neoplasm of stomach, unspecified (principal); K92.0 Hematemesis; K92.2 Gastrointestinal hemorrhage, unspecified; D62 Acute posthemorrhagic anemia; F17.200 Nicotine dependence, unspecified, uncomplicated; R00.0 Tachycardia, unspecified; R50.9 Fever, unspecified; D72.829 Elevated white blood cell count, unspecified
CPT/HCPCS: 36415; 36430; 71045-TC-FY; 74247-TC-FY; 80048; 80053; 83735; 84100; 85025; 85027; 85610; 85730; 86850; 86900; 86901; 86922; 88307-TC; 88309-TC; 94760; 97116-GP; 97161-GP; J0131; J1100; P9017; P9034; P9038; P9058

== ENCOUNTER 2017-07-18 11:30 | Observation (INO) | payer BC, OTHER ==
--- NOTE | 2017-07-18 12:37 | PDOC ---
History of Present Illness - General History Source: Patient Exam Limitations: No Limitations - History of Present Illness Initial Comments: 07/18/17 13:18 The patient is a 57 year old male, with a significant past medical history s/p robotic subtotal gastrectomy (due to adenocarcinoma, d/c on 07/03/17), who presents to the emergency department for evaluation of intermittent hematochezia for about 5 days. The patient states he has bright red blood with wiping and mixed in with his feces with bowel movements. He denies rectal bleeding without moving bowels. He denies pain with bowel movements. He denies abdominal pain. The patient states he has not had hematemesis since the day after his surgery. He denies taking anticoagulants since surgery on 06/29/17. He denies taking pain medications in at least one week. He states he has an appointment for surgical f/u on 07/20/17. He states he spoke with Dr. Angel, PCP, this morning who advised him to come to the ED. He denies chest pain, shortness of breath, headache and dizziness. He denies fever, chills, nausea, vomit, diarrhea and constipation. He denies dysuria, frequency, urgency and hematuria. Allergies: NKDA Surgeon: Dr. Cohen PCP: Dr. Angel <Barbara Latham - Last Filed: 07/18/17 16:57> <Kenneth Leger - Last Filed: 07/18/17 17:21> - General Chief Complaint: Bleeding from Anus Stated Complaint: POST SURG/ RECTAL BLEED Time Seen by Provider: 07/18/17 12:37 Past History <Barbara Latham - Last Filed: 07/18/17 16:57> - Past Medical History Anemia: No Cancer: Yes (recently dx stomach) COPD: No - Surgical History Abdominal Surgery: Yes (90 percent stomach removal 06/29/17) - Suicide/Smoking/Psychosocial Hx Smoking History: Never smoked Have you smoked in the past 12 months: Yes Number of Cigarettes Smoked Daily: 20 Information on smoking cessation initiated: No 'Breaking Loose' booklet given: 06/26/17 Hx Alcohol Use: No Drug/Substance Use Hx: No Substance Use Type: None Hx Substance Use Treatment: No <Kenneth Leger - Last Filed: 07/18/17 17:21> - Past Medical History Allergies/Adverse Reactions: Allergies Allergy/AdvReac Type Severity Reaction Status Date / Time No Known Allergies Allergy Verified 07/18/17 12:07 Home Medications: Ambulatory Orders Pantoprazole Sodium [Protonix] 40 mg PO DAILY 07/18/17 Sulfasalazine 500 mg PO DAILY 07/18/17 Tramadol HCl 50 mg PO Q6H PRN 07/18/17 Review of Systems - Review of Systems Able to Perform ROS?: Yes Comments:: 07/18/17 13:18 CONSTITUTIONAL: No fever, no chills, no fatigue EYES: No visual changes ENT: No ear pain, no sore throat CARDIOVASCULAR: No chest pain, no palpitations RESPIRATORY: No cough, no SOB GI: (+) rectal bleeding. No abdominal pain, no nausea, no vomiting, no constipation, no diarrhea GENITOURINARY: No dysuria, no frequency, no hematuria MUSKULOSKELETAL: No backpain, no joint pain, no myalgias SKIN: No rash NEURO: No headache <Barbara Latham - Last Filed: 07/18/17 16:57> *Physical Exam - Vital Signs Last Vital Signs Temp Pulse Resp BP Pulse Ox 98.6 F 101 H 18 101/57 100 07/18/17 12:03 07/18/17 12:03 07/18/17 12:03 07/18/17 12:03 07/18/17 12:03 - Physical Exam Comments: 07/18/17 13:18 CONSTITUTIONAL: (+)pale-appearing; well-nourished; in no apparent distress HEAD: Normocephalic; atraumatic EYES: PERRL; EOM intact ENMT: External appears normal; normal oropharynx NECK: Supple; non-tender; no cervical lymphadenopathy CARD: Normal S1, S2; no murmurs, rubs, or gallops RESP: Normal chest excursion with respiration; breath sounds clear and equal bilaterally; no wheezes, rhonchi, or rales ABD: +healing, c/d/i surgical scars to abdomen. Soft, non-distended; non-tender ; no palpable organomegaly, no palpable hernias RECTAL: (+) Maroon blood in rectal vault. No hemorrhoids or fissures appreciated. No lesions. EXT: Normal ROM in all four extremities; non-tender to palpation; distal pulses intact SKIN: Warm, dry, no rash NEURO: No focal neurological deficiencies. <Barbara Latham - Last Filed: 07/18/17 16:57> - Vital Signs Last Vital Signs Temp Pulse Resp BP Pulse Ox 98.6 F 101 H 18 101/57 100 07/18/17 12:03 07/18/17 12:03 07/18/17 12:03 07/18/17 12:03 07/18/17 12:03 <Kenneth Leger - Last Filed: 07/18/17 17:21> ED Treatment Course - LABORATORY CBC & Chemistry Diagram: 07/18/17 13:31 07/18/17 13:31 - RADIOLOGY Radiograph Interpretation: 07/18/17 16:57 The patient's case was discussed at length with Dr. John, Dr. Angel, and Dr. Garcia. <Barbara Latham - Last Filed: 07/18/17 16:57> - LABORATORY CBC & Chemistry Diagram: 07/18/17 13:31 07/18/17 13:31 <Kenneth Leger - Last Filed: 07/18/17 17:21> Medical Decision Making - Medical Decision Making 07/18/17 17:20 Patient is hemodynamically stable without further evidence of rectal bleeding. CTA of abdomen and pelvis reveals a questionable collection within the area neighboring the pancreatic neck. GI and surgery has been consulted. Will admit for serial hctrs further evaluation. <Kenneth Leger - Last Filed: 07/18/17 17:21> *DC/Admit/Observation/Transfer - Attestations Scribe Attestion: 07/18/17 13:20 Documentation prepared by Barbara Latham, acting as medical hospital sales for Kenneth Leger MD <Barbara Latham - Last Filed: 07/18/17 16:57> - Discharge Dispostion Admit: Yes <Kenneth Leger - Last Filed: 07/18/17 17:21> Diagnosis at time of Disposition: Rectal bleeding - Discharge Dispostion Condition at time of disposition: Fair - Referrals Referrals: Bakari Angel MD [Primary Care Provider] -
[2017-07-18] MEDS ORDERED: SODIUM CHLORIDE 500 ML IV STA (13:14)
[2017-07-18 13:58] LABS: BASO % 0.2 % (0-2.0); HEMATOCRIT 31.3 % (35.4-49); HEMOGLOBIN 10.5 GM/dL (11.7-16.9); LYMPH % 8.9 % (8-40); MCH 29.7 pg (25.7-33.7); MCHC 33.6 g/dl (32.0-35.9); MEAN CELL VOLUME 88.5 fl (80-96); MONO % 6.5 % (3.8-10.2); NEUT % 84.4 % (42.8-82.8); PLATELET COUNT 311 K/MM3 (134-434); RBC 3.54 M/mm3 (4.00-5.60); RDW 13.5 % (11.9-15.9); WHITE BLOOD COUNT 9.8 K/mm3 (4.0-10.0)
[2017-07-18 14:12] LABS: INR 1.17 (0.82-1.09); PROTHROMBIN TIME (PATIENT) 13.2 SEC (9.98-11.88)
[2017-07-18 14:25] LABS: ALBUMIN 2.9 g/dl (3.4-5.0); ANION GAP 11 (8-16); BLOOD UREA NITROGEN 22 mg/dL (7-18); CALCIUM 8.7 mg/dL (8.5-10.1); CHLORIDE 100 mmol/L (98-107); CO2 27 mmol/L (21-32); CREATININE 0.9 mg/dL (0.7-1.3); GLUCOSE,RANDOM 90 mg/dL (74-106); SGPT/ALT 14 U/L (12-78); SODIUM 138 mmol/L (136-145)
[2017-07-18 14:27] LABS: ALK PHOS 86 U/L (45-117); BILIRUBIN,TOTAL 0.4 mg/dL (0.2-1.0); TOT PROT 6.8 g/dl (6.4-8.2)
[2017-07-18 14:29] LABS: POTASSIUM 4.7 mmol/L (3.5-5.1); SGOT/AST 15 U/L (15-37)
[2017-07-18] MEDS: DEXTROSE 5%-0.45% SALINE 1,000 ML IV SCH (18:00)
--- NOTE | 2017-07-18 18:34 | CON.GI ---
Consult Consult Specialty:: gi Referred by:: Dr Zhu - History of Present Illness Chief Complaint: rectal bleeding History of Present Illness: 57 y/o male with PMH of adenocarcinoma of the antrum, s/p partial gastrectomy , complicated by Upper gi Bleeding was admitted because of rectal bleeding last evening associated with constipation. He denies chest pain, SOB and LOC. There were no bleeding episodes today. Hgb was 10 which lower than his discharge hemoglobin of 12.S/p colonoscopy 04/2016 revealed small polyps, there were no diverticula noted. CTA revealed no extravasation of IV contrast but noted a 4cm collection near the anastomotic site. - Alcohol/Substance Use Hx Alcohol Use: No - Smoking History Smoking history: Never smoked Have you smoked in the past 12 months: Yes Aproximately how many cigarettes per day: 20 Home Medications - Allergies Allergies/Adverse Reactions: Allergies Allergy/AdvReac Type Severity Reaction Status Date / Time No Known Allergies Allergy Verified 07/18/17 12:07 - Home Medications Home Medications: Ambulatory Orders Pantoprazole Sodium [Protonix] 40 mg PO DAILY 07/18/17 Sulfasalazine 500 mg PO DAILY 07/18/17 Tramadol HCl 50 mg PO Q6H PRN 07/18/17 Review of Systems - Review of Systems Constitutional: denies: Fever Eyes: denies: Blurred Vision HENT: denies: Difficult Swallowing Neck: denies: Decreased ROM Cardiovascular: denies: Chest Pain Respiratory: denies: Cough Gastrointestinal: reports: Constipation, Rectal Bleeding. denies: Abdominal Pain, Bloating, Diarrhea, Dysphagia, Indigestion, Melena, Nausea, Vomiting Physical Exam-GI Vital Signs: Vital Signs Temperature 98.6 F 07/18/17 12:03 Pulse Rate 87 07/18/17 18:13 Respiratory Rate 18 07/18/17 18:13 Blood Pressure 108/64 07/18/17 18:13 O2 Sat by Pulse Oximetry (%) 98 07/18/17 18:13 Constitutional: Yes: Well Nourished Eyes: Yes: Conjunctiva Clear HENT: Yes: Atraumatic Neck: Yes: Supple Cardiovascular: Yes: Regular Rate and Rhythm Respiratory: Yes: CTA Bilaterally ...Palpate: Yes: Soft. No: Firm/Rigid, Guarding, Hepatomegaly, Mass, Pulsatile Mass, Splenomegaly, Tenderness Labs: CBC, BMP 07/18/17 13:31 07/18/17 13:31 INR, PTT INR 1.17 (0.82-1.09) H 07/18/17 13:31 Problem List - Problems (1) Rectal bleeding Assessment/Plan: R> may have clear liquids type and hold admit for observation Code(s): K62.5 - HEMORRHAGE OF ANUS AND RECTUM
[2017-07-18 20:08] VITALS: BMI 23.5
[2017-07-19] MEDS: DEXTROSE 5%-0.45% SALINE 1,000 ML IV SCH (06:29)
[2017-07-19 08:01] LABS: HEMOGLOBIN 9.2 GM/dL (11.7-16.9); MCHC 34.2 g/dl (32.0-35.9); MEAN CELL VOLUME 87.7 fl (80-96); MEAN PLT VOLUME 8.7 fl (7.5-11.1); PLATELET COUNT 279 K/MM3 (134-434); RBC 3.08 M/mm3 (4.00-5.60); RDW 13.5 % (11.9-15.9); WHITE BLOOD COUNT 6.6 K/mm3 (4.0-10.0)
[2017-07-19] MEDS ORDERED: PHYTONADIONE 10 MG/1 ML AMP IM ONE (10:20)
[2017-07-19 10:36] VITALS: TEMP 98.7
--- NOTE | 2017-07-19 11:24 | EKG ---
Test Reason : Blood Pressure : / mmHG Vent. Rate : 089 BPM Atrial Rate : 089 BPM P-R Int : 134 ms QRS Dur : 098 ms QT Int : 346 ms P-R-T Axes : 074 010 048 degrees QTc Int : 420 ms NORMAL SINUS RHYTHM NORMAL ECG WHEN COMPARED WITH ECG OF 26-JUN-2017 10:38, NO SIGNIFICANT CHANGE WAS FOUND Confirmed by PRAKASH MENDIETA MD ([id number]) on 07/19/2017 11:24:11 AM Referred By: Confirmed By:PRAKASH MENDIETA MD
[2017-07-19 14:28] VITALS: BP 101/52; PULSE 87
--- NOTE | 2017-07-19 18:02 | HP ---
Admitting History and Physical - Primary Care Physician PCP: Bakari Angel - Admission Chief Complaint: Rectal bleeding History of Present Illness: 57 y/o who underwent laparoscopic partial gastrectomy for adenocarcinoma and did well. Three days ago had rectal bleeding after a BM and claims the toilet bowl was all full of blood. Yesterday had a BM and saw small amt of blood and came to ED.He denies any abdominal pain N/V ,fever ,shaking chills. CT scan did not show any extravasation of dye.Did show a collection around the head of pancreas of 4cm probably a post op hematoma. Today he feels well and hasn't had a BM. His Hb was 10Gm and today is 9.2. History Source: Patient Limitations to Obtaining History: No Limitations - Past Medical History Rheumatology: Yes: Rheumatoid Arthritis - Smoking History Smoking history: Former smoker Have you smoked in the past 12 months: Yes Aproximately how many cigarettes per day: 20 If you are a former smoker, when did you quit?: june 19 - Alcohol/Substance Use Hx Alcohol Use: No History of Substance Use: reports: None - Social History Usual Living Arrangement: Yes: With Spouse ADL: Independent Home Medications - Allergies Allergies/Adverse Reactions: Allergies Allergy/AdvReac Type Severity Reaction Status Date / Time No Known Allergies Allergy Verified 07/18/17 12:07 - Home Medications Home Medications: Ambulatory Orders Pantoprazole Sodium [Protonix] 40 mg PO DAILY 07/18/17 Sulfasalazine 500 mg PO DAILY 07/18/17 Tramadol HCl 50 mg PO Q6H PRN 07/18/17 Review of Systems - Review of Systems Constitutional: reports: No Symptoms Eyes: reports: No Symptoms HENT: reports: No Symptoms Neck: reports: No Symptoms Cardiovascular: reports: No Symptoms Respiratory: reports: No Symptoms Gastrointestinal: reports: Rectal Bleeding Genitourinary: reports: No Symptoms Musculoskeletal: reports: Joint Pain Integumentary: reports: No Symptoms Neurological: reports: No Symptoms Endocrine: reports: No Symptoms Hematology/Lymphatic: reports: No Symptoms Psychiatric: reports: No Symptoms Physical Examination Vital Signs: Vital Signs Temperature 98.7 F 07/19/17 14:26 Pulse Rate 87 07/19/17 14:26 Respiratory Rate 20 07/19/17 10:35 Blood Pressure 101/52 07/19/17 14:26 O2 Sat by Pulse Oximetry (%) 96 07/19/17 09:00 Constitutional: Yes: Well Nourished, No Distress, Calm Eyes: Yes: WNL, Conjunctiva Clear, EOM Intact HENT: Yes: WNL Neck: Yes: Supple Cardiovascular: Yes: Regular Rate and Rhythm, S1, S2 Respiratory: Yes: Regular, CTA Bilaterally Gastrointestinal: Yes: Normal Bowel Sounds, Soft Renal/: Yes: WNL Breast(s): Yes: WNL Musculoskeletal: Yes: WNL Edema: No Peripheral Pulses WNL: Yes Integumentary: Yes: WNL Neurological: Yes: Alert, Oriented ...Motor Strength: WNL Psychiatric: Yes: Alert, Oriented Labs: CBC, BMP 07/19/17 06:30 07/18/17 13:31 Imaging - Results EKG: Report Reviewed, Image Reviewed Problem List - Problems (1) Rectal bleeding Code(s): K62.5 - HEMORRHAGE OF ANUS AND RECTUM (2) Acute blood loss anemia Code(s): D62 - ACUTE POSTHEMORRHAGIC ANEMIA (3) Gastric adenocarcinoma Code(s): C16.9 - MALIGNANT NEOPLASM OF STOMACH, UNSPECIFIED
== END 2017-07-19 20:05 | disposition home or self-care (01) ==
LOC: JER 11:30 → UNDOADMOB 17:21 → INTOOBSV 17:21 → JERBED 17:21 → J6S 19:15 → JERBED 19:15 → J6S 07-19 12:05
PROVIDERS: ADMIT Internal Medicine Hematology & Oncology; ATTEND Internal Medicine Hematology & Oncology
PROC: 3E0337Z Introduction of Electrolytic and Water Balance Substance into Peripheral Vein, Percutaneous Approach (ICD-10-PCS; principal; 2017-07-19)
PROC: 3E023GC Introduction of Other Therapeutic Substance into Muscle, Percutaneous Approach (ICD-10-PCS; 2017-07-19)
DX: K62.5 Hemorrhage of anus and rectum (principal); D62 Acute posthemorrhagic anemia; C16.9 Malignant neoplasm of stomach, unspecified; Z90.3 Acquired absence of stomach [part of]; Z87.891 Personal history of nicotine dependence
CPT/HCPCS: 36415; 72191-TC; 74175-TC; 80053; 85025; 85027; 85610; 86850; 86900; 86901; 93005; 93010; 99285-25; G0378

== ENCOUNTER 2018-10-13 22:53 | Emergency (ER) | payer BC, OTHER ==
[2018-10-13 23:03] VITALS: BMI 21.3
--- NOTE | 2018-10-13 23:28 | PDOC ---
History of Present Illness - General Chief Complaint: SIRS, Suspected/Possible Stated Complaint: FEVER/HEADACHE Time Seen by Provider: 10/13/18 23:27 History Source: Patient Exam Limitations: No Limitations - History of Present Illness Initial Comments: Loc Metzger is a 58 yo M w a sig pmh of recently diagnosed suspected bone malignancy, laparoscopic partial gastrectomy for adenocarcinoma now in remission , GI bleeds, hemorrhoids, anemia, and rheumatoid arthritis who presents to the ER after he experienced a fever earlier today. The patient states he no longer has a GI adenocarcinoma but recently had a CT scan performed on 09/24/18 which showed "an increased conspicuity and number of multiple osseous metastases as well as slightly enlarged thoracic lymph nodes" suspicious for a new bony metastatic process. The patient is currently receiving chemotherapy for these bony metastases but is unsure which chemotherapeutic agent he is receiving. He received his 2nd chemotherapy dose yesterday. Today, around 5 pm the patient believes he began experiencing an adverse reaction to the chemotherapeutic drug as he felt warm, flushed, had the chills, and rigors, and noticed that his oral temperature at home was 102, and a home rectal temperature was 103. The patient did not take any anti-pyretics, called his oncologist's office who recommended coming into the nearest ER. Here in the ER the patient's oral temperature has already gone down to 99.9. The patient endorses is slight headache but no neck pain, nuchal rigidity, blurry vision, or nausea. The patient denies having experienced any chest pain, SOB, difficulty breathing , nausea, vomiting, diarrhea, abdominal pain, back pain, dysuria, urgency, rashes, redness to body, redness around his chemo port. PCP: Bakari Angel Oncologist: Dr. Valerie Black at [facility] - [phone] General surgeon: Dr. Cohen GI: Dr. Henry PSH: laparoscopic partial gastrectomy for adenocarcinoma Social Hx: Lives with family, independent in ADL. Smokes around 1 PPD. Denies current drinking or other substance usage. Allergies: NKA, NKDA Past History - Past Medical History Allergies/Adverse Reactions: Allergies Allergy/AdvReac Type Severity Reaction Status Date / Time No Known Allergies Allergy Verified 10/13/18 23:03 Home Medications: Ambulatory Orders Pantoprazole Sodium [Protonix] 40 mg PO DAILY 07/18/17 Sulfasalazine 500 mg PO DAILY 07/18/17 Tramadol HCl 50 mg PO Q6H PRN 07/18/17 Anemia: No Cancer: Yes (recently dx stomach) COPD: No - Surgical History Abdominal Surgery: Yes (90 percent stomach removal 06/29/17) - Immunization History Immunization Up to Date: Yes - Suicide/Smoking/Psychosocial Hx Smoking History: Never smoked Have you smoked in the past 12 months: Yes Number of Cigarettes Smoked Daily: 20 If you are a former smoker, when did you quit?: june 19 Information on smoking cessation initiated: No 'Breaking Loose' booklet given: 06/26/17 Hx Alcohol Use: No Drug/Substance Use Hx: No Substance Use Type: None Hx Substance Use Treatment: No Review of Systems - Review of Systems Able to Perform ROS?: Yes Comments:: CONSTITUTIONAL: Present: Fever, chills Absent: diaphoresis, generalized weakness, malaise, loss of appetite HEENT: Absent: rhinorrhea, nasal congestion, throat pain, throat swelling, difficulty swallowing, mouth swelling, ear pain, eye pain, visual Changes CARDIOVASCULAR: Absent: chest pain, syncope, palpitations, irregular heart rate, lightheadedness , peripheral edema RESPIRATORY: Absent: cough, shortness of breath, dyspnea with exertion, orthopnea, wheezing, stridor, hemoptysis GASTROINTESTINAL: Absent: abdominal pain, abdominal distension, nausea, vomiting, diarrhea, constipation, melena, hematochezia GENITOURINARY: Present: Frequency Absent: dysuria, urgency, hesitancy, hematuria, flank pain, genital pain MUSCULOSKELETAL: Present: Myalgia Absent: arthralgia, joint swelling SKIN: Absent: rash, itching, pallor HEMATOLOGIC/IMMUNOLOGIC: Absent: easy bleeding, easy bruising, lymphadenopathy, frequent infections ENDOCRINE: Absent: unexplained weight gain, unexplained weight loss, heat intolerance, cold intolerance NEUROLOGIC: Present: Headache Absent: focal weakness or paresthesias, dizziness, unsteady gait, seizure, mental status changes, bladder or bowel incontinence PSYCHIATRIC: Absent: anxiety, depression, suicidal or homicidal ideation, hallucinations. *Physical Exam - Vital Signs Last Vital Signs Temp Pulse Resp BP Pulse Ox 99.9 F H 97 H 20 116/70 99 10/13/18 22:59 10/13/18 22:59 10/13/18 22:59 10/13/18 22:59 10/13/18 22:59 - Physical Exam Comments: GENERAL: Well developed, well nourished. Awake and alert. No acute distress. HEENT: Normocephalic, atraumatic. PERRLA, EOMI. No conjunctival pallor. Sclera are non- icteric. Moist mucous membranes. Oropharynx is clear. NECK: Supple. Full ROM. No JVD. Carotid pulses 2+ and symmetric, without bruits. No thyromegaly. CARDIOVASCULAR: Regular rate and rhythm. No murmurs, rubs, or gallops. Distal pulses are 2+ and symmetric. PULMONARY: No evidence of respiratory distress. Lungs clear to auscultation bilaterally. No wheezing, rales or rhonchi. ABDOMINAL: Soft. Non-tender. Non-distended. No rebound or guarding. No organomegaly. Normoactive bowel sounds. MUSCULOSKELETAL Normal range of motion at all joints. No bony deformities or tenderness. No CVA tenderness. EXTREMITIES: No cyanosis. No clubbing. No edema. No calf tenderness. SKIN: There is a chemo port in his right chest. palpation of the port ellicits no pain. The area of the port is not erythematous or painful. Warm and dry. Normal capillary refill. No rashes. No jaundice. NEUROLOGICAL: Alert, awake, appropriate. Cranial nerves 2-12 intact. No deficits to light touch in face, upper extremities and lower extremities. No motor deficits in the in face, upper extremities and lower extremities. Normal speech. Gait is normal without ataxia. PSYCHIATRIC: Cooperative. Good eye contact. Appropriate mood and affect. ED Treatment Course - LABORATORY CBC & Chemistry Diagram: 10/14/18 00:20 10/14/18 00:20 Medical Decision Making - Medical Decision Making Loc Metzger is a 58 yo M w a sig pmh of recently diagnosed suspected bone malignancy, laparoscopic partial gastrectomy for adenocarcinoma now in remission , GI bleeds, hemorrhoids, anemia, and rheumatoid arthritis who presents to the ER after he experienced a fever earlier today. The patient states he no longer has a GI adenocarcinoma but recently had a CT scan performed on 09/24/18 which showed "an increased conspicuity and number of multiple osseous metastases as well as slightly enlarged thoracic lymph nodes" suspicious for a new bony metastatic process. The patient is currently receiving chemotherapy for these bony metastases but is unsure which chemotherapeutic agent he is receiving. He received his 2nd chemotherapy dose yesterday. Today, around 5 pm the patient believes he began experiencing an adverse reaction to the chemotherapeutic drug as he felt warm, flushed, had the chills, and rigors, and noticed that his oral temperature at home was 102, and a home rectal temperature was 103. The patient did not take any anti-pyretics, called his oncologist's office who recommended coming into the nearest ER. Here in the ER the patient's oral temperature has already gone down to 99.9. The patient endorses is slight headache but no neck pain, nuchal rigidity, blurry vision, or nausea. The patient denies having experienced any chest pain, SOB, difficulty breathing , nausea, vomiting, diarrhea, abdominal pain, back pain, dysuria, urgency, rashes, redness to body, redness around his chemo port. Vital Signs Temp Pulse Resp BP Pulse Ox 99.9 F H 97 H 20 116/70 99 10/13/18 22:59 10/13/18 22:59 10/13/18 22:59 10/13/18 22:59 10/13/18 22:59 MDM: Patient presents with a fever but no obvious source. Will obtain labs and perform a full septic workup given he has a hx of cancer and is receiving chemo. Will r/o neutropenia by obtaining a cbc. Plan: Labs, Urine, cultures, CXR, EKG, anti-pyretics, IV hydration, probable Abx , re-assess. Labs: Unremarkable other than mild hypocalcemia Urine: clean CXR: Normal EKG: Normal Sinus rate of 83, incomplete RBBB, HI - 124, QTc - 453, No ST elevations or depressions. TWI in aVL. Oncologist consult: Zoledronic acid - can sometimes cause a fever and a reaction. Prob just a reaction to this medication. If he is feeling better it is okay for him to go home. Recommends starting calcium supplements. Patient has a follow up appointment with his oncologist on Sunday. Re-assessment: Patient feels well and requests to be discharged. Disposition: Will DC patient with oncologist FU on sunday. Strict return precautions discussed with patient including fever, rash, headache, n/v or any other concerning symptoms. *DC/Admit/Observation/Transfer Diagnosis at time of Disposition: Fever and chills, Hypocalcemia - Discharge Dispostion Disposition: HOME Condition at time of disposition: Improved Decision to Admit order: No - Referrals Referrals: Bakari Angel MD [Primary Care Provider] - - Patient Instructions Printed Discharge Instructions: DI for Fever (Symptom) -- Adult Additional Instructions: You came into the ER with a fever. We looked at your blood and urine and found no abnormalities other than a low calcium level. We did and EKG and a chest x- ray which were both normal. We believe you experienced an adverse reaction to the zoledronic acid that you took yesterday which we believe is why you felt what you felt today and why your calcium is low. We called up your oncologist who suggests to start taking over the counter calcium supplements. Please make sure to follow up with your oncologist on Sunday as planned. Come back to the ER immediately if your fever goes up again, you get a headache , start vomiting, feel nauseous, or have any other new or worsening concerns. Thank you for coming to the [facility] ER. We hope you feel better soon! Print Language: AZERI - Post Discharge Activity
[2018-10-13] MEDS ORDERED: SODIUM CHLORIDE IV ONE (23:40)
[2018-10-13] MEDS ORDERED: ACETAMINOPHEN 325 MG TABLET (FP) PO ONE (23:53)
[2018-10-14] MEDS ORDERED: ACETAMINOPHEN 325 MG TABLET (FP) ONE (00:08)
[2018-10-14 00:32] LABS: BASO % 0.6 % (0-2.0); EOS % 0.2 % (0-4.5); HEMATOCRIT 35.9 % (35.4-49); LYMPH % 15.2 % (8-40); MCH 27.9 pg (25.7-33.7); MCHC 33.5 g/dl (32.0-35.9); MEAN CELL VOLUME 83.3 fl (80-96); MEAN PLT VOLUME 8.6 fl (7.5-11.1); MONO % 2.3 % (3.8-10.2); NEUT % 81.7 % (42.8-82.8); PLATELET COUNT 215 K/MM3 (134-434); RBC 4.31 M/mm3 (4.00-5.60); WHITE BLOOD COUNT 3.9 K/mm3 (4.0-10.0)
[2018-10-14 01:02] LABS: PH,URINE 5.5 (5.0-8.0); URINE APPEARANCE CLEAR; URINE BILIRUBIN NEGATIVE (NEGATIVE); URINE COLOR YELLOW; URINE GLUCOSE (UA) NEGATIVE (NEGATIVE); URINE KETONE NEGATIVE (NEGATIVE); URINE LEUK ESTERASE NEGATIVE (NEGATIVE); URINE NITRITE NEGATIVE (NEGATIVE); URINE PROTEIN NEGATIVE (NEGATIVE); URINE UROBILINOGEN 0.2 mg/dL (0.2-1.0)
[2018-10-14 01:10] LABS: INR 1.1 (0.83-1.09)
[2018-10-14 01:13] LABS: ACTIVATED PTT 31.6 SECONDS (25.2-36.5)
[2018-10-14 01:26] LABS: BILIRUBIN,TOTAL 0.2 mg/dL (0.2-1); BLOOD UREA NITROGEN 18.6 mg/dL (7-18); CREATININE 0.9 mg/dL (0.55-1.3); POTASSIUM 4.4 mmol/L (3.5-5.1); TOT PROT 6.9 g/dl (6.4-8.2)
[2018-10-14 01:27] LABS: CALCIUM 6.8 mg/dL (8.5-10.1)
--- NOTE | 2018-10-14 02:05 | PDOC ---
Documentation entered by Gunnar Brandt SCRIBE, acting as scribe for Ursula Weems MD. Ursula Weems MD: This documentation has been prepared by the Rikki wiley Xhesika, SCRIBE, under my direction and personally reviewed by me in its entirety. I confirm that the documentation accurately reflects all work, treatment, procedures, and medical decision making performed by me. Attending Attestation - Resident Resident Name: Epifanio Yeboah - ED Attending Attestation I have performed the following: I have examined & evaluated the patient, The case was reviewed & discussed with the resident, I agree w/resident's findings & plan, Exceptions are as noted - HPI HPI: 10/13/18 23:58 The patient is a 58 year old male, with a significant past medical history of recently diagnosed suspected bone malignancy (on chemotherapy, second dose yesterday), laparoscopic partial gastrectomy for adenocarcinoma (now in remission), GI bleeds, hemorrhoids, anemia, and rheumatoid arthritis, who presents to the emergency department with fever and slight headache since 5pm. The patient states he had a CT scan on 09/24/18 which showed suspected bone malignancy. The patient states he had his 2 dose of chemotherapy (unsure of which chemotherapeutic agent) and today at around 5pm the patient began to endorse hot flashes, chills, and rigors, and a rectal temperature at home of 103. The patient states he has been endorsing urinary frequency due to drinking liquids. The patient nomi neck pain, blurry vision, rashes, chest pain, shortness of breath, and dizziness. He denies nausea, vomit, diarrhea and constipation. He denies dysuria, frequency, urgency and hematuria. Allergies: NKDA PCP: Bakari Vincent Oncologist: Dr. Valerie Black at [facility] - Physicial Exam PE: 10/14/18 02:07 alert and conversant 58 yo male is no acute distress head ncat eyes lizzie eomi neck supple lungs cta b.l cvs [id number] abdomen no rebound, no guarding skin warm and dry,no vesicles,no petechia neuro axox3,ambulatory psych appropriate - Medical Decision Making 10/14/18 02:10 -pt is NOT neutropenic the pt's oncologist actually called us back and this pt does already have an appt to see her this week -discussed the pt's symptoms of fever,chills and mild headache(he did not take any tylenol for his symptoms prior to arrival) and his lab results with his oncologist -she felt that these symptoms were the result of his chemo (Zoledronic acid) - he received fluids and tylenol and now feels back to baseline and wants to go home imp Chemo effects,plan d/c home w outpt follow up
[2018-10-14 02:47] VITALS: BP 98/58; PULSE 88; TEMP 98.4
--- NOTE | 2018-10-14 09:56 | EKG ---
Test Reason : Blood Pressure : / mmHG Vent. Rate : 083 BPM Atrial Rate : 083 BPM P-R Int : 124 ms QRS Dur : 096 ms QT Int : 386 ms P-R-T Axes : 066 019 071 degrees QTc Int : 453 ms NORMAL SINUS RHYTHM INCOMPLETE RIGHT BUNDLE BRANCH BLOCK SEPTAL INFARCT , AGE UNDETERMINED ABNORMAL ECG WHEN COMPARED WITH ECG OF 18-JUL-2017 18:00, INCOMPLETE RIGHT BUNDLE BRANCH BLOCK IS NOW PRESENT SEPTAL INFARCT IS NOW PRESENT Confirmed by ANTIONETTE ORTIZ MD ([id number]) on 10/14/2018 9:56:23 AM Referred By: Confirmed By:ANTIONETTE ORTIZ MD
== END 2018-10-14 02:49 | disposition home or self-care (01) ==
LOC: JER 22:53
PROC: 3E0337Z Introduction of Electrolytic and Water Balance Substance into Peripheral Vein, Percutaneous Approach (ICD-10-PCS; principal; 2018-10-13)
DX: R50.9 Fever, unspecified (principal); T45.1X5A Adverse effect of antineoplastic and immunosuppressive drugs, initial encounter; Y92.038 Other place in apartment as the place of occurrence of the external cause; C41.9 Malignant neoplasm of bone and articular cartilage, unspecified
CPT/HCPCS: 36415; 71045-TC-FY; 80053; 81003; 83605; 85025; 85610; 85730; 87040; 93005; 93010; 99283-25; J7030